=== PATIENT | male | born 1955 | race American Indian/Alaskan Native ===

== ENCOUNTER 2018-05-20 10:51 | Outpatient (CLI) | payer OTHER ==
[2018-05-20] MEDS ORDERED: PROVENTIL IH ONE (11:28)
== END 2018-05-20 10:52 | disposition home or self-care (01) ==
LOC: PF 10:51
PROVIDERS: ATTEND Internal Medicine
DX: Z02.71 Encounter for disability determination (principal); R06.02 Shortness of breath; G89.29 Other chronic pain; M54.5 Low back pain
CPT/HCPCS: 94060; 94640